=== PATIENT | female | born 2000 | race Caucasian/White ===

== ENCOUNTER 2021-05-09 11:08 | Emergency (ER) | payer BC, SELFPAY ==
[2021-05-09] VITALS (7 sets, daily range): BP systolic 110–130; BP diastolic 63–82; PULSE 55–71; RESP 18; TEMP 36.9; O2SAT 94–100; BMI 19.3
[2021-05-09] MEDS: ONDANSETRON 4 MG/2 ML INJ IV (11:33)
[2021-05-09 12:04] LABS: Amorphous Sediment Urine 2+; Bacteria Urine Moderate (10-30); RBC Urine 0-1/HPF (0-5/HPF); Squamous Epithelial Cell Urine 5-10 /HPF (0-5/HPF); WBC Urine 0-1/HPF (0-5/HPF)
[2021-05-09 12:05] LABS: Culture Indicated Urine Cult Not Indicated; Mucus Urine 2+ (Negative)
[2021-05-09] MEDS: SODIUM CHLORIDE 0.9% 1,000 ML 1000 ML IV (12:05)
[2021-05-09 12:16] LABS: Add Manual Diff / Slide Review NO; Basophils Absolute Auto 0 /uL (0-100); Basophils Percent Auto 0.3 % (0-2); Eosinophils Absolute Auto 0 /uL (0-450); Eosinophils Percent Auto 0.1 % (2-4); Hematocrit 37.9 % (36-46); Hemoglobin 12.8 g/dL (12.0-16.0); Lymphocytes Absolute Auto 900 /uL (1100-4500); Lymphocytes Percent Auto 13.1 % (25-40); Mean Corpuscular HGB Conc 33.9 % (30-36); Mean Corpuscular Hemoglobin 28.8 PG (26-34); Mean Corpuscular Volume 84.9 fL (80-100); Monocytes Absolute Auto 500 /uL (0-900); Monocytes Percent Auto 7.5 % (3-14); Neutrophils Absolute Auto 5500 /uL (1500-7000); Platelet Count 210 X10^3/uL (150-400); Red Blood Cell Count 4.46 X10^6/uL (4.0-5.2); Red Cell Distribution Width 14.6 % (11.6-14.8); White Blood Cell Count 6.9 X10^3/uL (4.5-11.0)
[2021-05-09 12:18] LABS: Ictotest Urine Negative (Negative)
[2021-05-09 12:22] LABS: Lactate (Lactic Acid) 1.7 mmol/L (0.7-2.1)
[2021-05-09 12:24] LABS: Alanine Aminotransferase 24 IU/L (<35); Albumin 4.9 g/dL (3.5-5.0); Albumin Globulin Ratio 1.4 (1.0-2.8); Alkaline Phosphatase 79 U/L (38-126); Aspartate Aminotransferase 32 IU/L (14-36); Bilirubin Total 0.4 mg/dL (0.2-1.3); Blood Urea Nitrogen 9 mg/dL (7-17); Carbon Dioxide 28 mmol/L (22-32); Chloride 96 mmol/L (98-107); Estimated Glomerular Filt Rate > 60.0 mL/min (>60); Globulin 3.4 g/dL (1.7-4.1); Glucose 112 mg/dL (70-100); HEMOLYSIS < 15 (0-50); Potassium 3.3 mmol/L (3.4-5.1); Sodium 134 mmol/L (137-145); Total Protein 8.3 g/dL (6.3-8.2)
--- NOTE | 2021-05-09 12:28 | ED_ITS ---
HPI - Nausea/Vomiting/Diarrhea <TERRENCE Alamo - Last Filed: 05/09/21 13:23> General Chief complaint: Nausea/Vomiting/Diarrhea Stated complaint: Can't keep Fluids down Time Seen by Provider: 05/09/21 12:10 Source: patient Mode of arrival: Ambulatory History of Present Illness HPI Narrative: 21-year-old female with history of Fentanyl use with dependence presents to the emergency department complaining of nausea, diarrhea, feeling fatigued, and weak since her last use of fentanyl on 04/26/2021. Patient states that she has had an opioid use disorder for many years, the last time that she was in inpatient detox was in January 2020. She states that she has been to inpatient/outpatient treatment 5 times and has come off of fentanyl both with medication and at home without medication. She states that she did not have any medication when she quit using on 04/26/2021. She states that she has had na usea, fatigue, feeling weak, having diarrhea frequently over the last week. But she denies any fever, syncope, seizure, chest pain, shortness of breath or other concern. She states that she is not , does not have any possibility of being . She has her mother at her bedside who is her support system. She denies seeking any inpatient therapy at this time. She states that she does not have any intention of hurting herself or hurting other people, she denies any SI, audio or visual hallucinations, tremor, diaphoresis, dysuria, back pain, or other. She is looking for a primary care provider in the area as they recently moved here, she is also looking for a therapist/behavioral health evaluations/outpatient detox referral. She states that she has had diarrhea today without vomiting. Related Data Previous Rx's Medication Instructions Recorded naloxone 0.4 mg/mL injection 0.4 mg IM Q2M PRN #1 ml 05/09/21 syringe naloxone 4 mg/actuation nasal spray 4 mg INTRANASAL Q2M PRN #2 ea 05/09/21 ondansetron 4 mg disintegrating 4 mg PO Q8H PRN #14 tab 05/09/21 tablet Allergies Allergy/AdvReac Type Severity Reaction Status Date / Time No Known Drug Allergies Allergy Verified 05/09/21 11:49 Review of Systems <TERRENCE Alamo - Last Filed: 05/09/21 13:23> Review of Systems Narrative: General: denies fever, chills Head/Neck: denies headache, neck pain Eyes: denies visual changes, eye pain Cardio: denies chest pain, palpitations Respiratory: denies shortness of breath, cough GI: denies abdominal pain, endorses recent nausea, vomiting, and diarrhea : denies dysuria, hematuria MSK: denies joint pain, muscle weakness Skin: denies rash, itching Neuro: denies numbness, tingling Patient History <TERRENCE Alamo - Last Filed: 05/09/21 13:23> Social History Smoking Status: Current every day smoker Smoking Status: Current every day smoker tobacco type: vaping alcohol intake frequency: 0-2 drinks per day Substance Use Type: marijuana and opiates Exam <TERRENCE Alamo - Last Filed: 05/09/21 13:23> Narrative Exam Narrative: Independently reviewed vitals signs and nursing notes. General: Awake, alert, nontoxic, no cardiorespiratory distress Head/Neck: Atraumatic, neck full range of motion Eyes: EOMI, conjunctiva normal Nose: nares patent, no rhinorrhea Mouth/Throat: moist mucus membranes, no oral lesions Cardio: Regular rate and rhythm, no peripheral edema Respiratory: respirations unlabored without wheezing, stridor, or rales. No retractions. GI: Abdomen soft, nontender to palpation MSK: Moves all extremities, neurovascularly intact Skin: Normal capillary refill, no rash Neuro: Normal speech and cognition, normal gait Initial Vital Signs Initial Vital Signs: Vital Signs Temperature 98.4 F 05/09/21 11:15 Pulse Rate 60 05/09/21 11:15 Respiratory Rate 18 05/09/21 11:15 Blood Pressure 112/81 05/09/21 11:15 Pulse Oximetry 100 05/09/21 11:15 <Julianna Burris DO - Last Filed: 05/09/21 14:54> Initial Vital Signs Initial Vital Signs: Vital Signs Temperature 98.4 F 05/09/21 11:15 Pulse Rate 60 05/09/21 11:15 Respiratory Rate 18 05/09/21 11:15 Blood Pressure 112/81 05/09/21 11:15 Pulse Oximetry 100 05/09/21 11:15 Course <TERRENCE Alamo - Last Filed: 05/09/21 13:23> Orders Ordered: ED Orders 05/09/21 11:25 Ictotest Urine Stat Urine Microscopic Stat 05/09/21 11:28 CBC Auto Diff [Complete Blood Count AUTO DIFF] Stat CMP [Comprehensive Metabolic Panel] Stat Lactate (Lactic Acid) Stat 05/09/21 12:10 Consult to STOCK FEEDER - [employer] Straightener Stat Discontinued Medications Sodium Chloride (Normal Saline 0.9%) 1,000 mls @ 1,000 mls/hr IV BOLUS ONE Stop: 05/09/21 12:40 Last Infusion: 05/09/21 12:44 Dose: 0 mls/hr Documented by: Admin: 05/09/21 12:05 Dose: 1,000 mls/hr Documented by: HUGO Ondansetron HCl (Ondansetron 4 Mg/2 Ml Inj) 4 mg IV NOW ONE Stop: 05/09/21 11:42 Last Admin: 05/09/21 11:33 Dose: 4 mg Documented by: HUGO Potassium Chloride (Potassium Chloride 20 Meq Tab) 40 meq PO NOW ONE Stop: 05/09/21 12:47 Last Admin: 05/09/21 13:20 Dose: 40 meq Documented by: WILDER Vital Signs Vital signs: Vital Signs - 8 hr 05/09/21 11:15 05/09/21 11:30 05/09/21 12:00 Temperature 98.4 F Pulse Rate 60 55 L 59 L Respiratory Rate 18 Blood Pressure 112/81 122/82 119/70 Pulse Oximetry 100 100 100 05/09/21 12:30 05/09/21 13:00 05/09/21 13:01 Temperature Pulse Rate 71 62 63 Respiratory Rate Blood Pressure 130/80 110/67 Pulse Oximetry 98 94 05/09/21 13:27 Temperature Pulse Rate 68 Respiratory Rate 18 Blood Pressure 119/63 Pulse Oximetry 96 <Julianna Burris DO - Last Filed: 05/09/21 14:54> Orders Ordered: ED Orders 05/09/21 11:25 Ictotest Urine Stat Urine Microscopic Stat 05/09/21 11:28 CBC Auto Diff [Complete Blood Count AUTO DIFF] Stat CMP [Comprehensive Metabolic Panel] Stat Lactate (Lactic Acid) Stat 05/09/21 12:10 Consult to STOCK FEEDER - Tube And Rod Straightener Stat Discontinued Medications Sodium Chloride (Normal Saline 0.9%) 1,000 mls @ 1,000 mls/hr IV BOLUS ONE Stop: 05/09/21 12:40 Last Infusion: 05/09/21 12:44 Dose: 0 mls/hr Documented by: Admin: 05/09/21 12:05 Dose: 1,000 mls/hr Documented by: HUGO Ondansetron HCl (Ondansetron 4 Mg/2 Ml Inj) 4 mg IV NOW ONE Stop: 05/09/21 11:42 Last Admin: 05/09/21 11:33 Dose: 4 mg Documented by: HUGO Potassium Chloride (Potassium Chloride 20 Meq Tab) 40 meq PO NOW ONE Stop: 05/09/21 12:47 Last Admin: 05/09/21 13:20 Dose: 40 meq Documented by: WILDER Vital Signs Vital signs: Vital Signs - 8 hr 05/09/21 11:15 05/09/21 11:30 05/09/21 12:00 Temperature 98.4 F Pulse Rate 60 55 L 59 L Respiratory Rate 18 Blood Pressure 112/81 122/82 119/70 Pulse Oximetry 100 100 100 05/09/21 12:30 05/09/21 13:00 05/09/21 13:01 Temperature Pulse Rate 71 62 63 Respiratory Rate Blood Pressure 130/80 110/67 Pulse Oximetry 98 94 05/09/21 13:27 Temperature Pulse Rate 68 Respiratory Rate 18 Blood Pressure 119/63 Pulse Oximetry 96 MDM - Nausea/Vomiting/Diarrhea <TERRENCE Alamo - Last Filed: 05/09/21 13:23> Lab Data Result diagrams: 05/09/21 11:28 05/09/21 11:28 Labs: Lab Results 05/09/21 05/09/21 05/09/21 Range/Units 11:25 11:25 11:28 WBC 6.9 (4.5-11.0) X10^3/uL RBC 4.46 (4.0-5.2) X10^6/uL Hgb 12.8 (12.0-16.0) g/dL Hct 37.9 (36-46) % MCV 84.9 (80-100) fL MCH 28.8 (26-34) PG MCHC 33.9 (30-36) % RDW 14.6 (11.6-14.8) % Plt Count 210 (150-400) X10^3/uL Neut % (Auto) 79.0 H (50-75) % Lymph % (Auto) 13.1 L (25-40) % [place] % (Auto) 7.5 (3-14) % Eos % (Auto) 0.1 L (2-4) % Baso % (Auto) 0.3 (0-2) % Neut # (Auto) 5500 (9598-7677) /uL Lymph # (Auto) 900 L (2287-6454) /uL [place] # (Auto) 500 (0-900) /uL Eos # (Auto) 0 (0-450) /uL Baso # (Auto) 0 (0-100) /uL Sodium (137-145) mmol/L Potassium (3.4-5.1) mmol/L Chloride (98-107) mmol/L Carbon Dioxide (22-32) mmol/L BUN (7-17) mg/dL Creatinine (0.52-1.04) mg/dL Estimated GFR (>60) mL/min BUN/Creatinine Ratio (6-22) Glucose (70-100) mg/dL Lactate (0.7-2.1) mmol/L Calcium (8.4-10.2) mg/dL Total Bilirubin (0.2-1.3) mg/dL AST (14-36) IU/L ALT (<35) IU/L Alkaline Phosphatase (38-126) U/L Total Protein (6.3-8.2) g/dL Albumin (3.5-5.0) g/dL Globulin (1.7-4.1) g/dL Albumin/Globulin Ratio (1.0-2.8) Ur Bilirubin Confirm Negative (Negative) Urine RBC 0-1/hpf (0-5/HPF) Urine WBC 0-1/hpf (0-5/HPF) Ur Squamous Epith Cells 5-10 /hpf H (0-5/HPF) Amorphous Sediment 2+ Urine Bacteria Moderate (10-30) H (None) Urine Mucus 2+ H (Negative) Ur Culture Indicated? Cult not indicated 04/02/22 04/02/22 Range/Units 11:28 11:28 WBC (4.5-11.0) X10^3/uL RBC (4.0-5.2) X10^6/uL Hgb (12.0-16.0) g/dL Hct (36-46) % MCV (80-100) fL MCH (26-34) PG MCHC (30-36) % RDW (11.6-14.8) % Plt Count (150-400) X10^3/uL Neut % (Auto) (50-75) % Lymph % (Auto) (25-40) % [place] % (Auto) (3-14) % Eos % (Auto) (2-4) % Baso % (Auto) (0-2) % Neut # (Auto) (0377-5920) /uL Lymph # (Auto) (6715-5575) /uL [place] # (Auto) (0-900) /uL Eos # (Auto) (0-450) /uL Baso # (Auto) (0-100) /uL Sodium 134 L (137-145) mmol/L Potassium 3.3 L (3.4-5.1) mmol/L Chloride 96 L (98-107) mmol/L Carbon Dioxide 28 (22-32) mmol/L BUN 9 (7-17) mg/dL Creatinine 0.60 (0.52-1.04) mg/dL Estimated GFR > 60.0 (>60) mL/min BUN/Creatinine Ratio 15.0 (6-22) Glucose 112 H (70-100) mg/dL Lactate 1.7 (0.7-2.1) mmol/L Calcium 9.0 (8.4-10.2) mg/dL Total Bilirubin 0.4 (0.2-1.3) mg/dL AST 32 (14-36) IU/L ALT 24 (<35) IU/L Alkaline Phosphatase 79 (38-126) U/L Total Protein 8.3 H (6.3-8.2) g/dL Albumin 4.9 (3.5-5.0) g/dL Globulin 3.4 (1.7-4.1) g/dL Albumin/Globulin Ratio 1.4 (1.0-2.8) Ur Bilirubin Confirm (Negative) Urine RBC (0-5/HPF) Urine WBC (0-5/HPF) Ur Squamous Epith Cells (0-5/HPF) Amorphous Sediment Urine Bacteria (None) Urine Mucus (Negative) Ur Culture Indicated? Point of Care Testing Test Results Negative Urine Dip Bedside Urine Glucose Negative Bedside Urine Bilirubin + 1 Bedside Urine Ketone - Negative Urine Specific [place] 1.030 Bedside Urine Occult Blood - Negative Bedside Urine pH 6.0 Bedside Urine Protein +/- 15 Bedside Urine Urobilinogen 0.2 Bedside Urine Nitrite - Negative Bedside Urine Leukocytes - Negative Esterase MDM Narrative Medical decision making narrative: This is a 21-year-old female with opioid use disorder related to fentanyl who presents the emergency department complaining of withdrawal symptoms since her last use on 04/26/2021. Her symptoms include nausea, vomiting, diarrhea, and feeling fatigued. She states that she was requesting a work note to return to work as she is feeling better now. She was given Zofran, 1 L of IV fluids in the emergency department, lab work revealed hypokalemia with a potassium level of 3.3. No other significant electrolyte abnormalities, no leukocytosis, UA was negative for leukocytes or blood, was negative, lactic acid was 1.7. Patient was given a work note, is social work referral was placed as there was no social services analyst in the emergency department today. Patient was given contact information to establish a new primary care provider and information about [facility], she was recommended to call on Tuesday to make an appointment for an outpatient opioid use disorder therapist and evaluation for mental health. Patient was given a prescription of Zofran. She was given 40 mEq of potassium in the emergency department with food and she tolerated this without vomiting. She was encouraged she take daily multiple vitamin, eat healthy foods, establish care with a therapist and a primary care provider and follow-up accordingly. Encouraged her to return to the emergency department for any worsening of her symptoms, if she feels the need to use again and needs help, or if she has any other concerns. Patient and her mother were satisfied with this, patient felt ready to discharge. Patient is appropriate and amenable to discharge home. Vital signs are stable on repeat examination is unremarkable. Patient has been informed of results. Patient has been given strict return to ER precautions for any new or worsening symptoms. Patient understands to follow up closely with outpatient providers as instructed. Patient understands plan and agrees to discharge home. All questions and concerns answered at this time. <Julianna Burris, DO - Last Filed: 05/09/21 14:54> Lab Data Labs: Lab Results 05/09/21 05/09/21 05/09/21 Range/Units 11:25 11:25 11:28 WBC 6.9 (4.5-11.0) X10^3/uL RBC 4.46 (4.0-5.2) X10^6/uL Hgb 12.8 (12.0-16.0) g/dL Hct 37.9 (36-46) % MCV 84.9 (80-100) fL MCH 28.8 (26-34) PG MCHC 33.9 (30-36) % RDW 14.6 (11.6-14.8) % Plt Count 210 (150-400) X10^3/uL Neut % (Auto) 79.0 H (50-75) % Lymph % (Auto) 13.1 L (25-40) % [place] % (Auto) 7.5 (3-14) % Eos % (Auto) 0.1 L (2-4) % Baso % (Auto) 0.3 (0-2) % Neut # (Auto) 5500 (1535-5407) /uL Lymph # (Auto) 900 L (3753-2041) /uL [place] # (Auto) 500 (0-900) /uL Eos # (Auto) 0 (0-450) /uL Baso # (Auto) 0 (0-100) /uL Sodium (137-145) mmol/L Potassium (3.4-5.1) mmol/L Chloride (98-107) mmol/L Carbon Dioxide (22-32) mmol/L BUN (7-17) mg/dL Creatinine (0.52-1.04) mg/dL Estimated GFR (>60) mL/min BUN/Creatinine Ratio (6-22) Glucose (70-100) mg/dL Lactate (0.7-2.1) mmol/L Calcium (8.4-10.2) mg/dL Total Bilirubin (0.2-1.3) mg/dL AST (14-36) IU/L ALT (<35) IU/L Alkaline Phosphatase (38-126) U/L Total Protein (6.3-8.2) g/dL Albumin (3.5-5.0) g/dL Globulin (1.7-4.1) g/dL Albumin/Globulin Ratio (1.0-2.8) Ur Bilirubin Confirm Negative (Negative) Urine RBC 0-1/hpf (0-5/HPF) Urine WBC 0-1/hpf (0-5/HPF) Ur Squamous Epith Cells 5-10 /hpf H (0-5/HPF) Amorphous Sediment 2+ Urine Bacteria Moderate (10-30) H (None) Urine Mucus 2+ H (Negative) Ur Culture Indicated? Cult not indicated 05/09/21 05/09/21 Range/Units 11:28 11:28 WBC (4.5-11.0) X10^3/uL RBC (4.0-5.2) X10^6/uL Hgb (12.0-16.0) g/dL Hct (36-46) % MCV (80-100) fL MCH (26-34) PG MCHC (30-36) % RDW (11.6-14.8) % Plt Count (150-400) X10^3/uL Neut % (Auto) (50-75) % Lymph % (Auto) (25-40) % [place] % (Auto) (3-14) % Eos % (Auto) (2-4) % Baso % (Auto) (0-2) % Neut # (Auto) (9517-5890) /uL Lymph # (Auto) (4472-6303) /uL [place] # (Auto) (0-900) /uL Eos # (Auto) (0-450) /uL Baso # (Auto) (0-100) /uL Sodium 134 L (137-145) mmol/L Potassium 3.3 L (3.4-5.1) mmol/L Chloride 96 L (98-107) mmol/L Carbon Dioxide 28 (22-32) mmol/L BUN 9 (7-17) mg/dL Creatinine 0.60 (0.52-1.04) mg/dL Estimated GFR > 60.0 (>60) mL/min BUN/Creatinine Ratio 15.0 (6-22) Glucose 112 H (70-100) mg/dL Lactate 1.7 (0.7-2.1) mmol/L Calcium 9.0 (8.4-10.2) mg/dL Total Bilirubin 0.4 (0.2-1.3) mg/dL AST 32 (14-36) IU/L ALT 24 (<35) IU/L Alkaline Phosphatase 79 (38-126) U/L Total Protein 8.3 H (6.3-8.2) g/dL Albumin 4.9 (3.5-5.0) g/dL Globulin 3.4 (1.7-4.1) g/dL Albumin/Globulin Ratio 1.4 (1.0-2.8) Ur Bilirubin Confirm (Negative) Urine RBC (0-5/HPF) Urine WBC (0-5/HPF) Ur Squamous Epith Cells (0-5/HPF) Amorphous Sediment Urine Bacteria (None) Urine Mucus (Negative) Ur Culture Indicated? Point of Care Testing Test Results Negative Urine Dip Bedside Urine Glucose Negative Bedside Urine Bilirubin + 1 Bedside Urine Ketone - Negative Urine Specific [place] 1.030 Bedside Urine Occult Blood - Negative Bedside Urine pH 6.0 Bedside Urine Protein +/- 15 Bedside Urine Urobilinogen 0.2 Bedside Urine Nitrite - Negative Bedside Urine Leukocytes - Negative Esterase Discharge Plan Departure Patient Disposition: Home Clinical Impression: Opioid use with withdrawal, Hypokalemia Instructions: Opioid Use Disorder Activity Restrictions/Additional Instructions: *You have been diagnosed with opioid use with withdrawal symptoms. I put a referral in for a social work consult, Aishwarya will likely call you on Tuesday. On Tuesday, please also call [facility] and try to get an appointment for an evaluation for outpatient opioid use disorder therapy. For a primary care provider, please call [phone] to establish care with providers here in [place]. They may be able to help you with a clinic closer to your house. Please look up your insurance information and see what providers are near you that are covered so that you can get the maximum amount of healthcare from providers in that list. Call, make an appointment to establish care, and keep pursuing it. You are a smart, young, healthy female who has her whole life ahead of her. Please take care of you, continue to put the work in to be your best self and to avoid things that can damage your life. You have the power to write your own story. Try stay hydrated with electrolyte containing solutions, your potassium was slightly low today, please take a multivitamin daily with food and water. I hope you start feeling like yourself soon. *What to do: *Please continue to take your regular medications as directed. [x ] New medication prescriptions sent to your pharmacy: [ [facility]] [ ] New medication written as a paper prescription [ ] No new medications given *Please follow up with your primary care provider in 2-3 days, call for an appointment. Let them know you were seen in the Emergency Department and that we asked that you be seen for follow-up. We will electronically transmit a record of today's note if your PCP is in our system *If you do not have a primary care provider please contact [phone] to establish care with one of the [facility] primary care providers. *Return to Emergency Department if you should have any new, worsening or concerning symptoms, such as [fever greater than 101F, chills, worsening pain, persistent vomiting or other bothersome symptoms] Prescriptions: New ondansetron 4 mg tablet,disintegrating 4 mg PO Q8H PRN (Reason: nausea and vomiting) Qty: 14 0RF naloxone 0.4 mg/mL syringe 0.4 mg IM Q2M PRN (Reason: opioid reversal) Qty: 1 0RF Rx Instructions: NTExceed 10 mg total dose/episode naloxone 4 mg/actuation spray,non-aerosol 4 mg intranasal Q2M PRN (Reason: opioid overdose) Qty: 2 0RF Rx Instructions: spray 1 dose into ONE nostril; alternate nostrils w each dose until help arrives Referrals: [facility] [Provider Group] Stand Alone Forms: Work Release Note <Julianna Burrsi DO - Last Filed: 05/09/21 14:54> Cosign ED Attending Santinoature Attestation: I was immediately available in the department for consultation. Documentation has been reviewed.
[2021-05-09] MEDS: POTASSIUM CHLORIDE 20 MEQ TAB 40 MEQ PO (13:20)
== END 2021-05-09 13:28 | disposition home or self-care (01) ==
PROVIDERS: Emergency Medicine; Emergency Provider Nurse Practitioner Critical Care Medicine
DX: F11.93 Opioid use, unspecified with withdrawal (principal); E87.6 Hypokalemia
CPT/HCPCS: 36415; 80053; 81003; 81015; 81025; 83605; 85025; 96374; 99284; J2405